=== PATIENT | female | born 1990 | race Hispanic/Latino ===

== ENCOUNTER 2019-06-23 06:12 | Day surgery (SDC) | payer BC ==
[2019-06-21 17:55] VITALS: BP 119/64
[2019-06-23] VITALS (20 sets, daily range): BP systolic 121–152; BP diastolic 71–83
[~2019-06-23] VITALS: Ht 162.6 cm; Wt 74.9 kg
[~2019-06-23 06:12] MED LIST: CETI10TA57 PO; FLUT16H NASAL; METF500T20 PO
[2019-06-23] MEDS ORDERED: SODIUM CHLORIDE 0.9% 1000ML 1,000 ML IV ONE (06:26)
[2019-06-23] MEDS ORDERED: OXYMETAZOLINE HCL SPRAY 15 ML BOTTLE ONE (06:37)
[2019-06-23] MEDS ORDERED: LIDOCAINE 1%-EPI 1:100,000 20 ML VIAL IJ ONE (06:41)
[2019-06-23] MEDS ORDERED: EPINEPHRINE 1 MG/ML 30ML VIAL IJ ONE (06:41)
[2019-06-23] MEDS ORDERED: BACITRACIN 28.4 GM OINT TP ONE (06:41)
[2019-06-23] MEDS ORDERED: LIDOCAINE PF 2% 5ML ABBOJECT ONE (07:18)
[2019-06-23] MEDS ORDERED: ROCURONIUM 10MG/1ML SYR 10 MG/ML ML ONE (07:18)
[2019-06-23] MEDS ORDERED: PROPOFOL 10 MG/ML 20ML VIAL IV ONE (07:18)
[2019-06-23] MEDS ORDERED: MIDAZOLAM HCL 1 MG/ML 2ML VIAL ONE ×2 (07:18→07:20)
[2019-06-23] MEDS ORDERED: SUCCINYLCHOLINE 200MG/10ML SYR ONE (07:18)
[2019-06-23] MEDS ORDERED: FENTANYL CITRATE PF 50 MCG/1 ML 5ML AMP IV ONE (07:19)
[2019-06-23] MEDS ORDERED: DEXAMETHASONE SOD PHOSPHATE 10MG/ML 1ML VIAL ONE (07:33)
[2019-06-23] MEDS ORDERED: ONDANSETRON HCL 4 MG/2 ML VIAL ONE ×2 (07:33→09:07)
[2019-06-23] MEDS ORDERED: MEPERIDINE-PF 25 MG/ML SYG ONE (08:36)
--- NOTE | 2019-06-23 09:24 | NUR ---
ASSESSM,ENT RECEIVED PT FROM PACU STAFF. PT [id number]. DRSG NOTED TO NOSE. NO BLEEDING, OOZING NOTED TO SITE. AT BEDSIDE.
--- NOTE | 2019-06-23 10:45 | NUR ---
DISCHARGE ORAL AND WRITTEN DISCHARGE INSTRUCTIONS GIVEN TO PT AND PTS ALONG WITH PRESCRIPTION. INSTRUCTED ON HOW TO CHANGE NASAL DRSG. VERBALIZED UNDERSTANDING. NO OTHER QUESTIONS AT THIS TIME.
== END 2019-06-23 10:48 | disposition home or self-care (01) ==
LOC: DAH 06:12
PROVIDERS: ATTEND Otolaryngology Plastic Surgery within the Head & Neck
DX: J34.2 Deviated nasal septum (principal); J30.9 Allergic rhinitis, unspecified; J32.9 Chronic sinusitis, unspecified; J34.3 Hypertrophy of nasal turbinates; J34.89 Other specified disorders of nose and nasal sinuses; G47.30 Sleep apnea, unspecified; I10 Essential (primary) hypertension; G89.29 Other chronic pain; F41.9 Anxiety disorder, unspecified; E28.2 Polycystic ovarian syndrome; E11.9 Type 2 diabetes mellitus without complications; F32.9 Major depressive disorder, single episode, unspecified; F43.10 Post-traumatic stress disorder, unspecified; Z79.84 Long term (current) use of oral hypoglycemic drugs; Z88.1 Allergy status to other antibiotic agents
CPT/HCPCS: 30140; 30520; 31254; 31256; 81025; 88304; 88305; 88311; A4215; A4221; A4222; A4223; A4335; A4649 ×2; A4663; A6260; J0171; J0330; J1100; J2001; J2175; J2250 ×2; J2405 ×2; J2704; J3010; J3490; J7030 ×2; J7040

== ENCOUNTER 2019-06-28 00:03 | Emergency (ER) | payer BC ==
[2019-06-28] MEDS ORDERED: ONDANSETRON HCL 4 MG/2 ML VIAL ONE (00:39)
[2019-06-28] MEDS ORDERED: MECLIZINE HCL 25 MG TABLET ONE (00:39)
[2019-06-28] MEDS ORDERED: SODIUM CHLORIDE 0.9% 1000ML 1,000 ML IV ONE (00:40)
[2019-06-28 00:45] LABS: BASOPHILS % (AUTO) 0.5 % (0.0-5.0); EOSINOPHILS % (AUTO) 0.6 % (0.0-8.0); HEMATOCRIT 40.7 % (36-48); LYMPHOCYTES % (AUTO) 16.9 % (21.0-51.0); MEAN CORPUSCULAR HEMOGLOBIN 31.8 pg (27.0-33.0); MEAN CORPUSCULAR HGB CONC 35.4 g/dL (32.0-36.0); MEAN CORPUSCULAR VOLUME 89.8 fL (79-99); MONOCYTES % (AUTO) 4.8 % (3.0-13.0); NEUTROPHILS % (AUTO) 77.2 % (40.0-77.0); PLATELET COUNT (AUTO) 290 K/uL (130-400); RED BLOOD CELL COUNT(AUTO) 4.53 MIL/uL (4.00-5.50); RED CELL DISTRIBUTION WIDTH 12.9 % (11.0-15.5)
[2019-06-28 00:48] LABS: CREATININE 0.9 mg/dL (0.5-1.5); POTASSIUM 4.5 mmol/L (3.5-5.1)
[2019-06-28 00:53] LABS: ALBUMIN 4.3 g/dL (3.5-5.0); BILIRUBIN,TOTAL 0.3 mg/dL (0.2-1.0); TOTAL PROTEIN, SERUM 7.9 g/dL (6.0-8.3)
[2019-06-28 01:00] LABS: APPEARANCE,URINE Clear (CLEAR); BILIRUBIN,URINE Negative (NEGATIVE); COLOR,URINE Yellow (YELLOW); GLUCOSE, URINE (UA) Negative (NEGATIVE); KETONES,URINE 15 mg/dL (NEGATIVE); LEUKOCYTE ESTERASE ,URINE Negative (NEGATIVE); NITRATE,URINE Negative (NEGATIVE); OCCULT BLOOD,URINE Negative (NEGATIVE); PROTEIN,URINE Negative (NEGATIVE)
[2019-06-28 01:02] LABS: HCG,QUAL RESULT NEGATIVE (NEGATIVE)
[2019-06-28 01:07] LABS: AMPHET/METH SCREEN,URINE NEGATIVE (NEGATIVE); BARBITURATE SCREEN, URINE NEGATIVE (NEGATIVE); BENZODIAZEPINES SCREEN,URINE NEGATIVE (NEGATIVE); CANNABINOID SCREEN,URINE NEGATIVE (NEGATIVE); COCAINE SCREEN,URINE NEGATIVE (NEGATIVE); OPIATE SCREEN,URINE POSITIVE (NEGATIVE); PHENCYCLIDINE SCREEN,URINE NEGATIVE (NEGATIVE)
[2019-06-28 01:12] LABS: RBC,URINE None Seen /HPF (0-1)
[2019-06-28 01:14] LABS: BACTERIA,URINE Few /HPF (None Seen); MUCUS,URINE Few LPF (None Seen)
== END 2019-06-28 02:04 | disposition home or self-care (01) ==
LOC: EDH 00:03
DX: H81.399 Other peripheral vertigo, unspecified ear (principal); R53.1 Weakness; G43.909 Migraine, unspecified, not intractable, without status migrainosus; Z88.1 Allergy status to other antibiotic agents
CPT/HCPCS: 36415; 80053; 80305; 81001; 81025; 85025; 96361; 96374; 99285; J2405; J7030